=== PATIENT | female | born 1950 | race Caucasian/White ===

== ENCOUNTER → 2024-06-29 08:25 | Outpatient (REF) | payer MEDICARE, OTHER, SELFPAY | LOC: HWRAD 08:25 | PROVIDERS: ATTENDING PHYSICIAN Internal Medicine Gastroenterology; FAMILY PHYSICIAN Nurse Practitioner Family | DX: D12.6 Benign neoplasm of colon, unspecified (principal) | CPT/HCPCS: 74261 ==